=== PATIENT | female | born 1960 | race Two or more races ===

== ENCOUNTER 2016-08-01 16:38 | Emergency (ER) | payer MEDICAID, OTHER ==
[~2016-08-01] VITALS: Ht 149.9 cm; Wt 68.0 kg
[2016-08-02 08:00] VITALS: BP 151/79
== END 2016-08-02 08:43 | disposition home or self-care (01) ==
LOC: ER 16:47
DX: M17.11 Unilateral primary osteoarthritis, right knee (principal); F41.9 Anxiety disorder, unspecified; F32.9 Major depressive disorder, single episode, unspecified
CPT/HCPCS: 93971